=== PATIENT | female | born 1965 | race Two or more races ===

== ENCOUNTER 2018-07-17 17:02 | Emergency (ER) | payer OTHER ==
[~2018-07-17] VITALS: Ht 157.5 cm; Wt 104.3 kg
[2018-07-17 18:43] VITALS: BP 129/80
[2018-07-17] MEDS ORDERED: cefTRIAXone SOD 1,000 MG VL IM ONE (19:00)
[2018-07-17] MEDS ORDERED: HYDROcodone-ACET 10/325MG TAB PO ONE (19:15)
== END 2018-07-17 19:41 | disposition home or self-care (01) ==
LOC: ER 17:11
DX: L03.031 Cellulitis of right toe (principal); B35.1 Tinea unguium
CPT/HCPCS: 73630; 96372; 99284; J0696